=== PATIENT | female | born 1960 | race Caucasian/White ===

== ENCOUNTER 2017-11-09 14:05 | Emergency (ER) | payer BC ==
[~2017-11-09] VITALS: Ht 160 cm; Wt 102.1 kg
[~2017-11-09 14:05] MED LIST: BACTRIM DS 8001 TA1 PO; K-DUR 1010 MEQ PO; LIPITOR20 MG PO; LISINOPRIL AND1 TA2 PO; NKHM; NORVASC10 MG PO; PRAVACHOL40 MG PO; SYNTHROID0.1 MG PO; VITAMIN D400 IU PO
[2017-11-09] MEDS ORDERED: ANAPROX DS550 MG PO (14:22)
== END 2017-11-09 15:37 | disposition home or self-care (01) ==
LOC: ED 14:05
DX: M25.511 Pain in right shoulder (principal); Z98.51 Tubal ligation status; Z79.899 Other long term (current) drug therapy; Z88.0 Allergy status to penicillin; X50.0XXA Overexertion from strenuous movement or load, initial encounter; Y93.89 Activity, other specified; Y92.69 Other specified industrial and construction area as the place of occurrence of the external cause; Y99.9 Unspecified external cause status

== ENCOUNTER → 2018-03-17 | Outpatient (CLI) | payer BC ==
[~2018-03-17] MED LIST changes: +ANAPROX DS550 MG PO
== END | disposition home or self-care (01) ==
LOC: MAMMO 07:56
DX: Z12.31 Encounter for screening mammogram for malignant neoplasm of breast (principal)

== ENCOUNTER 2018-06-23 16:54 | Emergency (ER) | payer BC ==
[~2018-06-23] VITALS: Ht 160 cm; Wt 102.1 kg
[2018-06-23] MEDS ORDERED: NAPROSYN500 MG PO (17:04)
[2018-06-23] MEDS ORDERED: CHLORZOXAZONE500 M2 PO (17:04)
[2018-06-23 17:24] LABS: BILIRUBIN NEGATIVE (NEGATIVE); BLOOD NEGATIVE (NEGATIVE); CLARITY SL CLOUDY (CLEAR); COLOR YELLOW (YELLOW); GLUCOSE NEGATIVE (NEGATIVE); KETONE NEGATIVE (NEGATIVE); LEUKO ESTERASE TRACE (NEGATIVE); NITRITE NEGATIVE (NEGATIVE); PH 5.5 (5.0-9.0); SPECIFIC GRAVITY 1.025 (1.005-1.030); UROBILINOGEN 0.2 E.U./dl (0.2-1.0)
[2018-06-23 17:31] LABS: BACTERIA 2+; RBC 0-2 rbc/hpf (0-2)
== END 2018-06-23 18:26 | disposition home or self-care (01) ==
LOC: ED 16:54
PROVIDERS: Nurse Practitioner Family
DX: M54.5 Low back pain (principal); R03.0 Elevated blood-pressure reading, without diagnosis of hypertension; Z88.0 Allergy status to penicillin; Z79.899 Other long term (current) drug therapy

== ENCOUNTER → 2019-04-02 | Outpatient (CLI) | payer BC ==
[~2019-04-02] MED LIST changes: +CHLORZOXAZONE500 M2 PO; +NAPROSYN500 MG PO
[2019-04-03 08:10] LABS: HEPATITIS B SURFACE AG Negative (Negative); HEPATITIS C VIRUS ANTIBODY 0.2 s/co (0.0-0.9)
== END | disposition home or self-care (01) ==
LOC: LAB 07:18 → US 07:30
PROVIDERS: Internal Medicine
DX: R74.0 Nonspecific elevation of levels of transaminase and lactic acid dehydrogenase [LDH] (principal)

== ENCOUNTER → 2021-08-07 | Outpatient (CLI) | payer BC | END | disposition home or self-care (01) | LOC: RAD 08-04 08:00 | PROVIDERS: ATTEND Surgery | DX: Z01.818 Encounter for other preprocedural examination (principal); K21.9 Gastro-esophageal reflux disease without esophagitis ==